=== PATIENT | male | born 1960 | race Caucasian/White ===

== ENCOUNTER → 2016-10-27 | Outpatient (CLI) | payer OTHER ==
[2016-10-27 08:36] LABS: ASPARTATE AMINO TRANSFERASE 12 U/L (15-37); BLOOD UREA NITROGEN 13 mg/dL (7-18)
[2016-10-28 08:06] LABS: PSA SERIAL MONITOR 3.1 ng/mL (0.0-4.0)
== END | disposition home or self-care (01) ==
LOC: LAB 08:14
PROVIDERS: ATTEND Family Medicine
DX: Z12.5 Encounter for screening for malignant neoplasm of prostate (principal); E78.5 Hyperlipidemia, unspecified
CPT/HCPCS: 36415; 80053; 80061; 84153; G0103

== ENCOUNTER 2021-01-13 21:05 | Emergency (ER) | payer BC, OTHER ==
[~2021-01-13] VITALS: Ht 185.4 cm; Wt 106.9 kg
[2021-01-13 21:45] LABS: MICROSCOPIC NOT IND
[2021-01-13 22:09] LABS: BASOPHILS % (AUTO) 1 % (0-1); EOSINOPHILS % (AUTO) 1 % (1-7); LYMPHOCYTES % (AUTO) 22 % (22-44); MEAN CORPUSCULAR HEMOGLOBIN 32.9 pg (27.5-34.5); MEAN CORPUSCULAR HGB CONC 34.9 g/dL (33.2-36.2); MEAN PLATELET VOLUME 7.3 fL (7.4-10.4); MONOCYTES % (AUTO) 10 % (2-9); NEUTROPHILS % (AUTO) 67 % (42-75); PLATELET COUNT 324 x10^3/uL (130-400); RED BLOOD COUNT 4.38 x10^6/uL (4.38-5.82); RED CELL DISTRIBUTION WIDTH 13.2 % (9.4-14.8)
[2021-01-13 22:21] LABS: ALBUMIN 3.3 g/dL (3.4-5.0); ANION GAP 4 mmol/L (5-15); CALCIUM 9.1 mg/dL (8.5-10.1); CHLORIDE 103 mmol/L (98-107)
[2021-01-13 22:22] LABS: CREATININE 0.82 mg/dL (0.7-1.3)
[2021-01-13] MEDS ORDERED: OMNIPAQUE 350 MG/ML, 100ML BOTTLE ONE (23:45)
--- NOTE | 2021-01-13 23:46 | NUR ---
INSERTED 20G IN RIGHT AC FOR CT EXAM. SENT PT BACK INTO LOBBY WITH IV IN TACT.
--- NOTE | 2021-01-14 00:01 | NUR ---
DELINEATOR: PT. TO ROOM FROM LOBBY AT THIS TIME.
[2021-01-14] MEDS ORDERED: CIPROFLOXACIN 500 MG TABLET PO ONE (00:30)
[2021-01-14] MEDS ORDERED: metroNIDAZOLE 500 MG TABLET PO ONE (00:30)
[2021-01-14] MEDS ORDERED: metroNIDAZOLE 500 MG TABLET ONE (00:39)
[2021-01-14] MEDS ORDERED: CIPROFLOXACIN 500 MG TABLET ONE (00:39)
[2021-01-14 00:48] VITALS: BP 131/84
== END 2021-01-14 01:38 | disposition home or self-care (01) ==
LOC: ED 21:35
DX: K57.32 Diverticulitis of large intestine without perforation or abscess without bleeding (principal); R10.32 Left lower quadrant pain
CPT/HCPCS: 36415; 74177; 80048; 81003; 82040; 85025; 99285; Q9967